=== PATIENT | female | born 1940 | race Caucasian/White ===

== ENCOUNTER 2020-09-15 11:47 | Inpatient (IN) | payer MEDICARE, BC ==
[~2020-09-15 11:47] MED LIST: CRESTOR20 MG
[2020-10-31] VITALS (18 sets, daily range): BP systolic 82–139; BP diastolic 34–60; PULSE 55–88; TEMP 98–99.2
--- NOTE | 2020-10-31 06:45 | NUR ---
PATEINT REFUSED PRE OP ORAL MEDS. STATED SHE FELT SHE COULDN'T SWALLOW THEM. HUSSAIN PANCHAL AND TISHA VICTORIA NOTIFIED.
--- NOTE | 2020-10-31 06:45 | NUR ---
TO RM AT 0555- CALL LIGHT IN REACH AT BEDSIDE.
[2020-10-31] MEDS ORDERED: LIPITOR20 MG PO (06:47)
[2020-10-31] MEDS ORDERED: TAMOXIFEN CITRA20 MG PO (06:48)
[2020-10-31] MEDS ORDERED: CALCIUM 600MG+D1 TAB PO (06:49)
[2020-10-31] MEDS ORDERED: VITAMINS CHILDR1 CT1 PO (06:51)
--- NOTE | 2020-10-31 07:02 | NUR ---
DR BAUGH INTO SEE PATIENT
--- NOTE | 2020-10-31 10:08 | NUR ---
Patient up from OR. Alert and oriented x 3. Assessment complete. LLE with acewrap, ice to LLE. Post op fluids infusing per orders. Postop VSS. Patient able to move Left toes. Denies pain at this time. Oriented patient to room. Denies further needs at this time.
--- NOTE | 2020-10-31 12:03 | NUR ---
First visit from the residential sales rep. Patient was asleep so residential sales rep prayed for patient outside their door.
--- NOTE | 2020-10-31 13:51 | NUR ---
Patient up to BSC with x2 assist. Denies further needs at this time.
--- NOTE | 2020-10-31 13:55 | NUR ---
Patient feeling lightheaded when back to bed, BP 64/32, patient placed in Trendelenburg position. Recheck BP at 75/40. Patient states she is feeling a little better now.
--- NOTE | 2020-10-31 14:32 | NUR ---
Contacted Dr. Forman, patient states she is feeling better now. Keep patient in trandelenburg, monitor BP. Fluids continue infusing.
--- NOTE | 2020-10-31 15:36 | NUR ---
Patient supine, HOB at 30 degrees, denies feeling light head or dizzy. BP 115/45
--- NOTE | 2020-10-31 18:35 | NUR ---
Patient doing well this afternoon. Fluids continue infusing per orders. Denies further needs at this time. Tylenol given per orders for pain, patient states she would like to continue taking only tylenol for pain. Educated patient on pain medications. Denies further needs at this time. Will report off to night clerk auditor.
--- NOTE | 2020-10-31 21:00 | NUR ---
Pt. sitting up in bed at this time. Pt. is A&OX3, assessment complete. INT to lt. hand patent. Pt. reports pain at a 3 on pain scale at this time. Dressing to lt. knee CDI. Pt. denies further needs, call light within reach.
[2020-11-01 04:24] VITALS: BP 92/44; PULSE 82; TEMP 98.3
[2020-11-01 07:13] LABS: HEMATOCRIT 33.4 % (37.0-47.0)
--- NOTE | 2020-11-01 07:30 | NUR ---
Patient resting in bed. Assessment as charted. Patient denies any pain at this time. Dressing/Toby wrap to the left knee CDI and ice applied to the left knee. INT @ right wrist CDI. EBONY/SCDs are on. Call [facility] within reach.
[2020-11-01 08:36] VITALS: BP 107/53; PULSE 67; TEMP 98.6
--- NOTE | 2020-11-01 10:29 | NUR ---
Initial visit; Patient thanked Assistant Plant Control Operator for looking in on her and offering comfort, encouragement and prayer. Assistant Plant Control Operator will follow up and keep Vamshi in her prayers.
[2020-11-01 11:01] VITALS: BP 108/53; PULSE 75; TEMP 98
--- NOTE | 2020-11-01 12:03 | NUR ---
AAKASH met with the patient to discuss discharge plan. The patient lives in [place] with her , Sincere (c.ph#[phone]/h.ph#[phone]). She reports independence with ADLs and has a cane and walker. The patient's PCP is Dr. Yusef Triana and she receives her medications from [facility]. She reports no difficulties obtaining her meds. The patient does not have a DPOA-HC in EMR, but she states that she does have one completed and that it designates her . The patient had a knee replacement. The patient states that she would like to go to [facility] upon discharge for some rehab before returning home. She states that she went there after her last knee replacement. AAKASH discussed having second preference, in case [facility] cannot take and informed her of the other post-acute rehab options. The patient's second preference was [facility]. The patient states that her will be able to transport her to [facility], if they accept. AAKASH contacted José Miguel at [facility] and gave her the referral. AAKASH consulted IPR Director. Awaiting screens. AAKASH then contacted and reviewed the above information with the patient's , Sincere. Sincere is in agreement that the patient will need some rehab before returning home and was supportive of the patient's preferences. SW to continue to follow.
[2020-11-01 16:30] VITALS: BP 125/55; PULSE 80; TEMP 98
--- NOTE | 2020-11-01 18:57 | NUR ---
Patient doing well throughout the day. Minimal needs. Spouse in to see patient this afternoon. Patient states pain is minimal throughout the day. Denies further needs at this time. Will report off to machinist 2nd shift.
[2020-11-01 19:50] VITALS: BP 113/53; PULSE 79; TEMP 97.6
--- NOTE | 2020-11-01 21:16 | NUR ---
Pt. sitting up in bed at this time. Pt. is A&OX3, assessment complete. INT to rt. wrist patent. Dressing changed at this time. to chad, incision sutures intact, edges well approximated. Minimal drainage noted to gauze 4X4's. Pt. tolerated well. Pt. reports pain at a 5 on pain scale with movement. Gave pain meds per orders. Pt. denies further needs, call light within reach.
[2020-11-02] VITALS (8 sets, daily range): BP systolic 89–132; BP diastolic 44–58; PULSE 73–88; TEMP 97.6–98.6
--- NOTE | 2020-11-02 07:00 | NUR ---
Patient resting in bed. Assessment as charted. Denies pain at this time. Dressing CDI to left knee and EBONY hose on bilaterally at this time. Ice is on the left knee. INT @ right wrist CDI. Call light within reach.
--- NOTE | 2020-11-02 08:36 | NUR ---
José Miguel, at [facility], reports that they have tentatively accepted the patient on as long as they have a bed. SW to inform the patient and her .
--- NOTE | 2020-11-02 10:00 | NUR ---
Patient alert and oriented, answers questions appropriately. See assessment. LLE with aquacel CDI, no redness or drainage noted. Neuros intact to LLE, pulses palpable, no numbness or tingling noted. FWB with FWW and gait belt. EBONY ramirez on. Post op exercises reviewed with patient. No c/o at this time.
--- NOTE | 2020-11-02 11:56 | NUR ---
First visit from the automatic operator. No needs right now.
--- NOTE | 2020-11-02 14:09 | NUR ---
José Miguel, at [facility], reports that the accepting provider tomorrow will be Zeynep Salgado PA-C. Phone# for report is [phone]. AAKASH notified the patient's RN and provided her with the phone number. AAKASH contacted and updated the patient's , Sincere.
[2020-11-03 04:02] VITALS: BP 120/57; PULSE 89; TEMP 98.6
--- NOTE | 2020-11-03 05:26 | NUR ---
Patient did well throughout the shift. Pain controlled with tylenol. Aquacell to left knee clean, dry, and intact. SCDs and teds to bilateral lower extremities. Up to bathroom with walker, gait belt, and one assist. No other needs at this time.
[2020-11-03] MEDS ORDERED: ASPI325T6 PO (06:54)
[2020-11-03] MEDS ORDERED: ULTRAM 50MG TAB50 MG PO (06:54)
[2020-11-03] MEDS ORDERED: SENOKOT S 50 MG1 TAB PO (06:55)
[2020-11-03] MEDS ORDERED: TYLENOL 500MG500 MG PO (06:55)
[2020-11-03 07:35] VITALS: BP 132/54; PULSE 76; TEMP 98
--- NOTE | 2020-11-03 09:14 | NUR ---
José Miguel, at [facility], reports that they can accept the patient today. AAKASH provided the patient's RN with the number for the RN report. AAKASH updated patient's , Sincere. Sincere plans to be at the hospital at 1130 to transport the patient. AAKASH notified José Miguel at [facility] of the transport time. The patient is to discharge today, 11/03, to [facility]. Transportation is to be by private vehicle around 1130. AAKASH presented and read the IM form outloud to the patient. The patient verbalized understanding and gave AAKASH approval to sign the form on her behalf. AAKASH provided her with a copy. No additional needs at this time.
--- NOTE | 2020-11-03 10:17 | NUR ---
Follow-up visit; Patient thanked Powder Worker for offering a blessing and wishing her a thorough and rapid recovery. Vamshi doing well.
--- NOTE | 2020-11-03 12:27 | NUR ---
report called to Gwendolyn SHEN @ [facility]. pt left with in pov.
[2020-11-03 12:29] VITALS: BP 123/43; PULSE 89; TEMP 98.7
== END 2020-11-03 12:28 | disposition swing bed (61) | DRG 470 ==
LOC: SURG 10-19 07:30 → INPTSU 10-31 05:47 → SURG 10-31 07:30 → JCC 10-31 10:11
PROVIDERS: ADMIT Orthopaedic Surgery
PROC: 0SRD0J9 Replacement of Left Knee Joint with Synthetic Substitute, Cemented, Open Approach (ICD-10-PCS; principal; 2020-10-31 07:30)
DX: M17.12 Unilateral primary osteoarthritis, left knee (principal); M21.062 Valgus deformity, not elsewhere classified, left knee; M81.0 Age-related osteoporosis without current pathological fracture; H26.9 Unspecified cataract; E78.5 Hyperlipidemia, unspecified; Z20.822 Contact with and (suspected) exposure to COVID-19; Z96.651 Presence of right artificial knee joint; Z85.3 Personal history of malignant neoplasm of breast; Z92.21 Personal history of antineoplastic chemotherapy; Z88.8 Allergy status to other drugs, medicaments and biological substances
CPT/HCPCS: A9284; C1713; C1776; J0690; J2250; J2704; J3010; J7030; J7120